=== PATIENT | female | born 1985 | race Caucasian/White ===

== ENCOUNTER 2024-06-16 16:08 | Outpatient (CLI) | payer BC | END 2024-06-16 16:09 | disposition home or self-care (01) | LOC: ULT 16:08 | PROVIDERS: ATTEND Family Medicine | DX: R10.11 Right upper quadrant pain (principal); R10.13 Epigastric pain; K82.8 Other specified diseases of gallbladder | CPT/HCPCS: 76705 ==

== ENCOUNTER 2024-06-16 17:11 | Observation (INO) | payer BC ==
[~2024-06-16 17:11] MED LIST: Iopamidol-370 76% 500 ML MDV (1 ML CHARGE) ONE
[2024-06-16] MEDS ORDERED: Morphine 4 MG/ML VIAL ONE ×2 (17:52→20:10)
[2024-06-16] MEDS ORDERED: Ondansetron PF 4 MG/2 ML Vial ONE (17:52)
[2024-06-16] MEDS ORDERED: Piperacillin/Tazobactam 4.5 GM VIAL ONE (18:13)
[2024-06-16] MEDS ORDERED: Sodium Chloride 0.9% 100 ML ONE (18:14)
[2024-06-16 18:31] LABS: BHCG - Serum Negative (NEGATIVE); Pregs Control Background? CLEAR/WHITE (CLR/WHITE); Pregs Control Bar Appear? YES (CONTROL BAR)
[2024-06-16 18:37] LABS: ALT (SGPT) 44 U/L (8-55); AST (SGOT) 38 U/L (5-34); Albumin 3.8 g/dL (3.5-5.0); Alkaline Phosphatase 70 U/L (40-110); Anion Gap 12 mmol/L (10-20); BUN (Urea Nitrogen) 8 mg/dL (7.0-18.7); Bilirubin, Total 1.1 mg/dL (0.2-1.2); Calc. Creatinine Clearance 0 mL/min (70-130); Calcium 9.1 mg/dL (7.8-10.44); Carbon Dioxide 21 mmol/L (22-29); Chloride 105 mmol/L (98-107); Estimated GFR 101; Globulin 3.5 g/dL (2.4-3.5); Glucose 127 mg/dL (70-105); Lipase 34 U/L (8-78); Potassium 3.4 mmol/L (3.5-5.1); Protein, Total 7.3 g/dL (6.0-8.3); Sodium 135 mmol/L (136-145)
[2024-06-16 18:46] LABS: #Basophils 0.04 10x3/uL (0.0-0.2); #Eosinophils Less than 0.03 10x3/uL (0.0-0.7); %Basophils 0.2 % (0.0-1.0); %Eosinophils 0.1 % (0.0-10.0); %Lymphocytes 4.7 % (21.0-51.0); %Monocytes 7.3 % (0.0-10.0); Hematocrit 37.7 % (36.0-47.0); Hemoglobin 12.2 g/dL (12.0-16.0); Mean Corpuscular HGB CONC 32.4 g/dL (32.0-36.0); Mean Corpuscular Hemoglobin 29.9 pg (27.0-31.0); Mean Corpuscular Volume 92.4 fL (78.0-98.0); Platelet Count 315 10x3/uL (130-400); RBC Distribution Width 13.4 % (11.5-14.5); Red Blood Cell (RBC) Count 4.08 mill/uL (4.20-5.40)
[2024-06-16 19:05] LABS: Bacteria/HPF None Seen HPF (None Seen); Bilirubin Negative (Negative); Blood, Urine Negative (Negative); CAUTI Indications for Culture Pelvic or flank pain; Clarity Clear (Clear); Glucose, Urine (Dipstick) Normal (Negative); Ketone, Urine Negative (Negative); Leukocyte Negative Leu/uL (Negative); Nitrite Negative (Negative); Protein, Urine (Dipstick) 10 mg/dL (Neg-Trace); RBC/HPF 0-3 HPF (0-3); Specific Gravity, Urine 1.016 (1.002-1.036); Squamous Epithelial 0-3 HPF (0-3); Urobilinogen Normal mg/dL (Less than 2); WBC/HPF None Seen HPF (0-3); pH, Urine 7.5 (5.0-9.0)
[2024-06-16 19:26] LABS: Urine Culture Reflex No No
[2024-06-16] MEDS ORDERED: Morphine 4 MG/ML VIAL SLOW IVP PRN ×2 (19:56→20:02)
[2024-06-16] MEDS ORDERED: Ondansetron PF 4 MG/2 ML Vial IVP PRN ×2 (19:56→20:15)
[2024-06-16] MEDS ORDERED: Ondansetron ODT 4 MG TAB PO PRN (19:56)
[2024-06-16] MEDS ORDERED: LevoFLOXacin 500 mg/D5W 500 MG in Premix 1 BAG IVPB SCH (20:00)
[2024-06-16] MEDS ORDERED: Ondansetron ODT 4 MG TAB SL PRN (20:15)
[2024-06-16] MEDS ORDERED: Sodium Chloride 0.9% 1,000 ML IV SCH (20:15)
[2024-06-16] MEDS: LevoFLOXacin 750 mg/D5W 750 MG in Premix 1 BAG IVPB SCH (21:22)
[2024-06-16] MEDS: Enoxaparin 40 MG (0.4 mL) SYRINGE SC SCH (21:24)
[2024-06-16] MEDS: Acetaminophen 500 MG TAB PO SCH (21:25)
[2024-06-16] MEDS: Ketorolac Tromethamine 30 MG (1 mL) VIAL IVP SCH (21:31)
[2024-06-16] MEDS: Scopolamine 1 mg/72 hour Patch TD SCH (21:35)
[2024-06-16] MEDS: LevoFLOXacin 500 mg/D5W 500 MG in Premix 1 BAG IVPB SCH (21:58)
[2024-06-16 22:03] VITALS: BMI 29.0
[2024-06-16] MEDS: NS 0.9% w/ 40 MEQ KCL 1,000 ML IV SCH (22:31)
[2024-06-17] MEDS: Ketorolac Tromethamine 30 MG (1 mL) VIAL IVP SCH (01:01)
[2024-06-17] MEDS ORDERED: Bupivacaine 0.25% HCL 30 ML VIAL ONE (10:02)
[2024-06-17] MEDS ORDERED: EPINEPHrine 1 MG/ML VIAL ONE (10:02)
[2024-06-17] MEDS ORDERED: Famotidine/PF 20 mg/2ml Vial ONE (10:08)
[2024-06-17] MEDS ORDERED: SUGAMMADEX SODIUM 200 MG/2 ML VIAL ONE ×2 (10:18→11:19)
[2024-06-17] MEDS ORDERED: Rocuronium Bromide 10 MG/ML (10ML VIAL) ONE (10:18)
[2024-06-17] MEDS ORDERED: fentaNYL PF 100 MCG/2 ML SYRINGE ONE (10:18)
[2024-06-17] MEDS ORDERED: PROPOFOL 20 ML ONE (10:18)
[2024-06-17] MEDS ORDERED: Lidocaine 2% PF 5 ML VIAL ONE (10:19)
[2024-06-17] MEDS ORDERED: Midazolam HCl 2 mg/2 ml Vial ONE (10:30)
[2024-06-17] MEDS ORDERED: Ibuprofen 600 MG TAB PO PRN (10:49)
[2024-06-17] MEDS ORDERED: Dexamethasone 20 MG/5 ML VIAL ONE (10:51)
[2024-06-17] MEDS ORDERED: Metoclopramide HCl 10 MG (2 mL) VIAL ONE (10:51)
[2024-06-17] MEDS ORDERED: Ketorolac Tromethamine 30 MG (1 mL) VIAL ONE (10:51)
[2024-06-17] MEDS ORDERED: Ondansetron PF 4 MG/2 ML Vial ONE (10:51)
[2024-06-17] MEDS ORDERED: Ondansetron HCl/PF 4 MG/2 ML Vial IVP PRN (10:59)
[2024-06-17] MEDS ORDERED: Promethazine HCl 25 MG/ML VIAL IM PRN (10:59)
[2024-06-17] MEDS ORDERED: Meperidine HCl/PF 25 MG/ML VIAL SLOW IVP PRN (10:59)
[2024-06-17] MEDS ORDERED: Meperidine HCl/PF 25 MG (1 mL) VIAL ONE (11:34)
[2024-06-17 12:48] VITALS: TEMP 97.6
[2024-06-17] MEDS: traMADol HCl 50 MG TAB PO PRN (13:38)
[2024-06-17 13:53] VITALS: BP 101/68
== END 2024-06-17 14:37 | disposition home or self-care (01) ==
LOC: ERS 17:11 → SURG B 19:55
PROVIDERS: ADMIT Specialist; ATTEND Specialist
PROC: 0FT44ZZ Resection of Gallbladder, Percutaneous Endoscopic Approach (ICD-10-PCS; principal; 2024-06-16)
DX: K80.12 Calculus of gallbladder with acute and chronic cholecystitis without obstruction (principal); M79.7 Fibromyalgia; Z98.890 Other specified postprocedural states
CPT/HCPCS: 74177; 76705; 80053; 81001; 83690; 84703; 85025; 88304; 93005; 96365; 96367; 96372; 96375; 96376; C1889; G0378; J0171; J0665; J1100; J1650; J1885; J1956; J2175; J2250; J2272; J2405; J2543; J2704; J2765; J3480; J3490; Q9967